=== PATIENT | female | born 1930 | race Caucasian/White ===

== ENCOUNTER 2016-08-03 10:04 | Outpatient (CLI) | payer MEDICARE, MEDICAID ==
[2016-08-03] MEDS ORDERED: IOPAMIDOL-300 100 ML VIAL IVP ONE (11:45)
== END 2016-08-03 10:05 | disposition home or self-care (01) ==
DX: R59.0 Localized enlarged lymph nodes (principal)
CPT/HCPCS: 36415; 71260; 82565; Q9967

== ENCOUNTER 2016-08-26 07:34 | Outpatient (CLI) | payer MEDICARE, MEDICAID | END 2016-08-26 07:35 | disposition home or self-care (01) | DX: E11.9 Type 2 diabetes mellitus without complications (principal); N28.9 Disorder of kidney and ureter, unspecified ==

== ENCOUNTER 2016-11-25 08:58 | Outpatient (CLI) | payer MEDICARE, MEDICAID | END 2016-11-25 08:59 | disposition home or self-care (01) | LOC: LAB.WCP 08:58 | PROVIDERS: ATTEND Family Medicine | DX: N39.0 Urinary tract infection, site not specified (principal) | CPT/HCPCS: 87077; 87086; 87205 ==

== ENCOUNTER 2017-02-24 17:47 | Outpatient (CLI) | payer MEDICARE, MEDICAID ==
[2017-02-24 18:15] LABS: BASOPHILS % (AUTO) 0.6 %; EOSINOPHILS % (AUTO) 0.5 %; HCT - HEMATOCRIT 38.4 % (37.0-47.0); HGB - HEMOGLOBIN 12.9 g/dL (12.0-16.0); LYMPHOCYTES # (AUTO) 1.1 10^3/uL (1.5-3.5); LYMPHOCYTES % (AUTO) 22.7 %; MEAN CORPUSCULAR HEMOGLOBIN 30.9 pg (27.0-31.0); MEAN CORPUSCULAR HGB CONC 33.7 g/dL (32.0-36.0); MEAN CORPUSCULAR VOLUME 91.7 fL (81.0-99.0); MONOCYTES # (AUTO) 0.8 10^3/uL (0.0-1.0); MONOCYTES % (AUTO) 16.9 %; NEUTROPHILS % (AUTO) 59.3 %; RED BLOOD COUNT 4.18 10^6/uL (4.20-5.40); RED CELL DISTRIBUTION WIDTH 14.2 % (12.0-15.0)
[2017-02-24 18:32] LABS: BILIRUBIN,TOTAL 1.7 mg/dL (0.2-1.0); CALCIUM 9.7 mg/dL (8.5-10.3); CREATININE 0.9 mg/dL (0.4-1.0); POTASSIUM 3.7 mmol/L (3.5-5.0); TOTAL PROTEIN 8.4 g/dL (6.7-8.2)
[2017-02-24 19:09] LABS: PLATELET ESTIMATE, MANUAL NORMAL (130-450,000) (NORMAL); PLATELET MORPHOLOGY NORMAL APPEARANCE (NORMAL); WBC MORPHOLOGY (MULTIPLE) NORMAL APPEARANCE (NORMAL)
== END 2017-02-24 17:48 | disposition home or self-care (01) ==
LOC: LAB 17:47
PROVIDERS: ATTEND Family Medicine
DX: R07.89 Other chest pain (principal)
CPT/HCPCS: 36415; 80053; 84484; 85025

== ENCOUNTER 2017-04-20 13:46 | Emergency (ER) | payer MEDICARE, MEDICAID ==
--- NOTE | 2017-04-20 14:02 | ED Physician Documentation ---
History of Present Illness - Stated complaint Stated Complaint: DIZZY - Chief complaint Chief Complaint: Cardiac - History obtained from History obtained from: Patient, EMS - History of Present Illness Timing: Last night Pain level max: 0 Pain level now: 0 Improved by: nothing Worsened by: nothing - Additonal information Additional information: Patient is a 86-year-old female with a long-standing history of dementia who states she has been intermittently dizzy since last night she believes. Does have a history of atrial fibrillation and is on warfarin and digoxin for this. Noted to be hypertensive and bradycardic with EMS. Heart rate down into the 30s. Denies any chest pain or shortness of breath. Patient may have fallen and hit her head, she is unsure. Review of Systems Ten Systems: 10 systems reviewed and negative Constitutional: denies: Fever, Chills Throat: denies: Sore throat Cardiac: denies: Chest pain / pressure Respiratory: denies: Cough GI: denies: Abdominal Pain, Nausea, Vomiting, Diarrhea Skin: denies: Rash Musculoskeletal: denies: Neck pain, Back pain Neurologic: reports: Head injury (possible). 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 HEENT: Cataracts, Tonsil/Adenoidectomy - Present Medications Home Medications: Ambulatory Orders Medication Instructions Recorded Confirmed Alendronate [Fosamax] 70 mg PO ONCE 09/29/13 09/29/13 Digoxin [Lanoxin] 125 mcg PO DAILY 09/29/13 09/29/13 Furosemide [Lasix] 40 mg PO DAILY 09/29/13 09/29/13 Levothyroxine [Synthroid] 88 mcg PO QDAC 09/29/13 09/29/13 Losartan [Cozaar] 25 mg PO DAILY 09/29/13 09/29/13 Losartan [Cozaar] 25 mg PO DAILY 09/29/13 09/29/13 Potassium Chloride [Klor-Con M20] 20 meq PO 09/29/13 09/29/13 Warfarin Sodium [Coumadin] 2.5 mg PO DAILY 09/29/13 09/29/13 - Allergies Allergies/Adverse Reactions: Allergies Allergy/AdvReac Type Severity Reaction Status Date / Time No Known Drug Allergies Allergy Verified 04/20/17 13:52 - Social History Does the pt smoke?: No Smoking Status: Never smoker Does the pt drink ETOH?: No Does the pt have substance abuse?: No - Immunizations Immunizations are current?: Yes PD ED PE NORMAL - Vitals Vital signs reviewed: Yes - General General: Alert and oriented X 3, No acute distress, Well developed/nourished - HEENT HEENT: PERRL, Moist mucous membranes - Neck Neck: Supple, no meningeal sign - Cardiac Cardiac: Other (irregular, bradycardic) - Respiratory Respiratory: No respiratory distress, Clear bilaterally - Abdomen Abdomen: Soft, Non tender, Non distended - Derm Derm: Warm and dry - Extremities Extremities: No edema, No calf tenderness / cord - Neuro Neuro: Alert and oriented X 3 - Psych Psych: Normal mood, Normal affect Results - Vitals Vitals: Vital Signs - 24 hr 04/20/17 04/20/17 13:46 16:22 Temperature 36.1 C L Heart Rate 46 L 55 L Respiratory 18 21 Rate Blood Pressure 200/77 H 189/61 H O2 Saturation 96 100 Oxygen O2 Source Room air - EKG (time done) 1353 Rate: Rate (enter#) (49) Rhythm: Atrial fibrillation Intervals: RBBB - Labs Labs: Laboratory Tests 04/20/17 04/20/17 04/20/17 14:35 15:00 15:00 WBC 4.2 L RBC 3.95 L Hgb 12.2 Hct 35.6 L MCV 90.1 MCH 31.0 MCHC 34.4 RDW 14.4 Plt Count 135 MPV 8.6 Neut # Not Reportable Lymph # Not Reportable [place] # Not Reportable Eos # Not Reportable Baso # Not Reportable Absolute Nucleated RBC Not Reportable Total Counted 100 Band Neuts % (Manual) 0 Nucleated RBC % Not Reportable Neutrophils # (Manual) 2.3 Lymphocytes # (Manual) 1.4 L Monocytes # (Manual) 0.5 Differential Comment MANUAL DIFFERENTIAL Platelet Estimate NORMAL (130-450,000) Platelet Morphology 1+ LARGE PLATELETS RBC Morph Micro Appear NORMAL APPEARANCE PT INR Sodium 136 Potassium 3.6 Chloride 98 L Carbon Dioxide 29 Anion Gap 9.0 BUN 16 Creatinine 0.8 Estimated GFR (MDRD) 68 L Glucose 95 Calcium 9.5 Total Bilirubin 1.4 H AST 28 ALT 15 Alkaline Phosphatase 73 Troponin I Total Protein 8.4 H Albumin 4.3 Globulin 4.1 Albumin/Globulin Ratio 1.0 Lipase 42 Urine Color YELLOW Urine Clarity CLEAR Urine pH 6.5 Ur Specific [place] 1.010 Urine Protein NEGATIVE Urine Glucose (UA) NEGATIVE Urine Ketones NEGATIVE Urine Occult Blood NEGATIVE Urine Nitrite NEGATIVE Urine Bilirubin NEGATIVE Urine Urobilinogen 0.2 (NORMAL) Ur Leukocyte Esterase NEGATIVE Ur Microscopic Review NOT INDICATED Urine Culture Comments NOT INDICATED Last Dose Date Last Dose Time Digoxin 04/20/17 04/20/17 04/20/17 15:00 15:00 15:00 WBC RBC Hgb Hct MCV MCH MCHC RDW Plt Count MPV Neut # Lymph # [place] # Eos # Baso # Absolute Nucleated RBC Total Counted Band Neuts % (Manual) Nucleated RBC % Neutrophils # (Manual) Lymphocytes # (Manual) Monocytes # (Manual) Differential Comment Platelet Estimate Platelet Morphology RBC Morph Micro Appear PT 37.5 H INR 3.3 H Sodium Potassium Chloride Carbon Dioxide Anion Gap BUN Creatinine Estimated GFR (MDRD) Glucose Calcium Total Bilirubin AST ALT Alkaline Phosphatase Troponin I < 0.04 Total Protein Albumin Globulin Albumin/Globulin Ratio Lipase Urine Color Urine Clarity Urine pH Ur Specific [place] Urine Protein Urine Glucose (UA) Urine Ketones Urine Occult Blood Urine Nitrite Urine Bilirubin Urine Urobilinogen Ur Leukocyte Esterase Ur Microscopic Review Urine Culture Comments Last Dose Date UNKNOWN Last Dose Time UNKNOWN Digoxin 0.9 - Rads (name of study) head CT Radiology: Prelim report reviewed, EMP read contemporaneously, See rad report ( No acute intracranial CT abnormality. ) cxr Radiology: Prelim report reviewed, EMP read contemporaneously, See rad report ( There is cardiomegaly. No acute intrathoracic plain film abnormality. ) PD MEDICAL DECISION MAKING - ED course Complexity details: reviewed results, re-evaluated patient, considered differential, d/w patient, d/w PMD, d/w regional sales consultant ED course: Patient is an 86-year-old female who presents to the emergency department with symptomatic bradycardia and hypertension. Discussed the case with her primary care provider, Dr. Petersen, who states that normally the patient's blood pressure is low, hypertension is unusual for her. Also her heart rate is normally in the 50s-70s. Patient was monitored in the emergency department and the dizziness resolved. Discussed the case with Dr. Artis, cardiology who recommends stopping her digoxin and if still bradycardic after 24-48 hrs would consider pacemaker. HR does increase with exertion in the ED. She does not want to stay in the hospital for telemetry monitoring while this happens, therefore will have the [place] [facility] check her heart rate throughout the day and report back to her primary care provider. Will also have her follow-up with Dr. Petersen for further evaluation. Patient is well-appearing, nontoxic. Afebrile. No evidence of intracranial hemorrhage. Patient counseled regarding signs and symptoms for which I believe and urgent re-evaluation would be necessary. Patient with good understanding of and agreement to plan and is comfortable going home at this time This document was made in part using voice recognition software. While efforts are made to proofread this document, sound alike and grammatical errors may occur. Departure - Departure Disposition: 01 Home, Self Care Clinical Impression: Bradycardia Atrial fibrillation Qualifiers: Atrial fibrillation type: unspecified Qualified Code(s): I48.91 - Unspecified atrial fibrillation Hypertension Qualifiers: Hypertension type: unspecified Qualified Code(s): I10 - Essential (primary) hypertension Condition: Stable Instructions: ED Afib Follow-Up: Maxx Petersen DO [Primary Care Provider] - Within 3 Days Comments: Stop the digoxin and check her heart rate three times a day. If her heart rate does not increase over the next 24-48 hours, she will likely need a pacemaker with Dr. Artis at [facility]. I spoke with him and Dr. Petersen today. Return if she worsens. Discharge Date/Time: 04/20/17 17:28
[2017-04-20 15:11] LABS: BASOPHILS % (AUTO) 0.6 %; EOSINOPHILS % (AUTO) 0.6 %; HCT - HEMATOCRIT 35.6 % (37.0-47.0); HGB - HEMOGLOBIN 12.2 g/dL (12.0-16.0); LYMPHOCYTES % (AUTO) 26.4 %; MEAN CORPUSCULAR HGB CONC 34.4 g/dL (32.0-36.0); MEAN CORPUSCULAR VOLUME 90.1 fL (81.0-99.0); MEAN PLATELET VOLUME 8.6 fL (7.9-10.8); MONOCYTES % (AUTO) 15.3 %; NEUTROPHILS % (AUTO) 57.1 %; RED BLOOD COUNT 3.95 10^6/uL (4.20-5.40); RED CELL DISTRIBUTION WIDTH 14.4 % (12.0-15.0); UNCORRECTED WHITE BLOOD COUNT 4.2 x10^3/uL; WHITE BLOOD COUNT 4.2 x10^3/uL (4.8-10.8)
[2017-04-20 15:17] LABS: BILIRUBIN,TOTAL 1.4 mg/dL (0.2-1.0); CALCIUM 9.5 mg/dL (8.5-10.3); CREATININE 0.8 mg/dL (0.4-1.0); POTASSIUM 3.6 mmol/L (3.5-5.0); TOTAL PROTEIN 8.4 g/dL (6.7-8.2)
[2017-04-20 15:18] LABS: INR 3.3 (0.8-1.2); PT - PROTHROMBIN TIME 37.5 secs (9.9-12.6)
[2017-04-20 15:20] LABS: BAND NEUTROPHILS % (MANUAL) 0 %
[2017-04-20 15:36] LABS: LYMPHOCYTES % (MANUAL) 34 %; NEUTROPHILS % (MANUAL) 54 %; PLATELET MORPHOLOGY 1+ LARGE PLATELETS (NORMAL); TOTAL CELLS COUNTED 100
[2017-04-20 15:37] LABS: NP AUTO DIFFERENTIAL? YES; NP MAN DIFFERENTIAL? NO; PLATELET ESTIMATE, MANUAL NORMAL (130-450,000) (NORMAL)
[2017-04-20 15:52] LABS: BILIRUBIN,URINE NEGATIVE (NEGATIVE); PH,URINE 6.5 PH (5.0-7.5)
[2017-04-20 15:55] LABS: UA CHARGE (STRIP ONLY) YES; UR CULTURE IF IND NOT INDICATED
[2017-04-20 16:22] VITALS: BP 189/61
--- NOTE | 2017-04-20 16:31 | CT Preliminary Report ---
Exam: CT HEAD W/O IMPRESSION: No acute intracranial CT abnormality. [facility] SITE ID: [id number]
--- NOTE | 2017-04-20 16:34 | CT Report ---
EXAM: CT HEAD EXAM DATE: 04/20/2017 04:08 PM. CLINICAL HISTORY: Head injury, bradycardia, pt on warfarin. COMPARISON: 09/29/2013. TECHNIQUE: Noncontrast axial imaging was performed through the head. In accordance with CT protocol optimization, one or more of the following dose reduction techniques w ere utilized for this exam: automated exposure control, adjustment of mA and/or KV based on patient s ize, or use of iterative reconstructive technique. FINDINGS HEAD CT: Parenchyma: No intraparenchymal hemorrhage. No evidence of mass, midline shift, or CT findings of acu te infarction. Periventricular white matter hypodensity may represent small vessel ischemic disease. Extraaxial Spaces: There is mild generalized volume loss. No subdural or epidural collections identif ied. Ventricles: Normal in size and position. Sinuses: Paranasal sinuses and mastoid air cells demonstrate no evidence of significant opacification . Bones: No evidence of fracture or calvarial defect. Other: None. IMPRESSION: No acute intracranial CT abnormality. [facility] Referring Provider Line: [phone] SITE ID: [id number]
--- NOTE | 2017-04-20 16:34 | XRAY Preliminary Report ---
Exam: XR CHEST 1 VIEW IMPRESSION: 1. There is cardiomegaly. 2. No acute intrathoracic plain film abnormality. [facility] SITE ID: [id number]
--- NOTE | 2017-04-20 16:37 | XRAY Report ---
EXAM: CHEST RADIOGRAPHY EXAM DATE: 04/20/2017 04:08 PM. CLINICAL HISTORY: Chest pain. COMPARISON: 08/03/2016. TECHNIQUE: 1 view. FINDINGS: Lungs/Pleura: No focal opacities evident. No pleural effusion. No pneumothorax. Mediastinum: There is cardiomegaly. Other: None. IMPRESSION: 1. There is cardiomegaly. 2. No acute intrathoracic plain film abnormality. [facility] Referring Provider Line: [phone] SITE ID: [id number]
== END 2017-04-20 17:28 | disposition home or self-care (01) ==
LOC: EDBD → ED 13:46
DX: R00.1 Bradycardia, unspecified (principal); I48.91 Unspecified atrial fibrillation; I10 Essential (primary) hypertension; I45.10 Unspecified right bundle-branch block; F03.90 Unspecified dementia, unspecified severity, without behavioral disturbance, psychotic disturbance, mood disturbance, and anxiety; I25.10 Atherosclerotic heart disease of native coronary artery without angina pectoris; E11.9 Type 2 diabetes mellitus without complications; Z86.73 Personal history of transient ischemic attack (TIA), and cerebral infarction without residual deficits; Z79.01 Long term (current) use of anticoagulants
CPT/HCPCS: 36415; 70450; 71010; 80053; 80162; 81001; 81003; 83690; 84484; 85025; 85610; 87086; 93005; 99284

== ENCOUNTER 2017-07-22 04:06 | Outpatient (CLI) | payer MEDICARE, MEDICAID | END 2017-07-22 04:07 | disposition critical access hospital (66) | LOC: EMS 04:06 | PROVIDERS: ATTEND Surgery | DX: M25.552 Pain in left hip (principal) | CPT/HCPCS: A0425; A0427 ==

== ENCOUNTER 2017-07-22 04:57 | Emergency (ER) | payer MEDICARE, MEDICAID ==
--- NOTE | 2017-07-22 05:05 | ED Physician Documentation ---
PD HPI LOWER EXT INJURY - Stated complaint Stated Complaint: Hip Px - History obtained from History obtained from: Patient, EMS - History of Present Illness PD HPI LOW EXT INJURY LOCATION: Left Type of injury: Twist Where injury occurred: Home Timing - onset: Today Timing - details: Abrupt onset Associated symptoms: Swelling Contributing factors: Prosthetic joint Similar symptoms before: Has not had sx before Recently seen: Not recently seen - Additional information Additional information: Patient is an 87 year old female with a dementia and prosthetic hip who is presenting to the emergency department for left hip pain. According to patient and ems patient rolled over in bed and felt her hip pop, and when staff came in her left leg was hanging over the bed. patient denies any trauma. 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 HEENT: Cataracts, Tonsil/Adenoidectomy - Present Medications Home Medications: Ambulatory Orders Medication Instructions Recorded Confirmed Alendronate [Fosamax] 70 mg PO ONCE 09/29/13 09/29/13 Digoxin [Lanoxin] 125 mcg PO DAILY 09/29/13 09/29/13 Furosemide [Lasix] 40 mg PO DAILY 09/29/13 09/29/13 Levothyroxine [Synthroid] 88 mcg PO QDAC 09/29/13 09/29/13 Losartan [Cozaar] 25 mg PO DAILY 09/29/13 09/29/13 Losartan [Cozaar] 25 mg PO DAILY 09/29/13 09/29/13 Potassium Chloride [Klor-Con M20] 20 meq PO 09/29/13 09/29/13 Warfarin Sodium [Coumadin] 2.5 mg PO DAILY 09/29/13 09/29/13 - Allergies Allergies/Adverse Reactions: Allergies Allergy/AdvReac Type Severity Reaction Status Date / Time atenolol Allergy Unknown Verified 07/22/17 05:08 glipizide Allergy Unknown Verified 07/22/17 05:08 lisinopril Allergy Unknown Verified 07/22/17 05:08 nitrofurantoin Allergy Unknown Verified 07/22/17 05:08 [From Macrobid] simvastatin Allergy Unknown Verified 07/22/17 05:08 - Social History Does the pt smoke?: No Smoking Status: Never smoker Does the pt drink ETOH?: No Does the pt have substance abuse?: No - Immunizations Immunizations are current?: Yes PD ED PE NORMAL - General General: No acute distress - HEENT HEENT: Atraumatic, PERRL - Cardiac Cardiac: No murmur - Respiratory Respiratory: No respiratory distress - Abdomen Abdomen: Soft - Derm Derm: Normal color, Warm and dry, No rash - Neuro Neuro: No sensory deficit - Psych Psych: Normal mood PD ED PE EXPANDED - General General: Alert, No acute distress - HEENT HEENT: Dry mucous membranes - Extremities Extremities: Left hip (tenderness and deformity upon palpation) Results - Vitals Vitals: Vital Signs - 24 hr 07/22/17 07/22/17 07/22/17 05:02 05:44 05:48 Temperature 36.0 C L Heart Rate 86 78 86 Respiratory 12 18 17 Rate Blood Pressure 156/93 H 160/94 H 150/110 H O2 Saturation 92 95 98 07/22/17 07/22/17 07/22/17 05:57 06:02 06:10 Temperature Heart Rate 70 68 67 Respiratory 20 20 16 Rate Blood Pressure 139/79 H 152/78 H 142/76 H O2 Saturation 99 97 100 Oxygen O2 Source Nasal cannula - Rads (name of study) hip and pelvis Radiology: Final report received (dislocated prosthetic joint), EMP read contemporaneously hip post reduction Radiology: Final report received (reduced joint), EMP read contemporaneously Procedures - Reduction Body part reduced: Left, Hip, prosthetic Fracture or dislocation: Dislocation Anesthesia: Conscious sedation, Propofol Shoulder reduction technique: Traction - counter tract Hip reduction technique: Fulcrum Reduction aftercare: NV intact, Xray confirms reduction, Alignment improved, Patient tolerated well PD MEDICAL DECISION MAKING - ED course Complexity details: reviewed old records, reviewed results, re-evaluated patient , considered differential, d/w patient ED course: Patient was seen and examined at bedside. patient had received fentanyl in the field and pain was well controlled. imaging was ordered. When patient returned the results were reviewed and showed acute dislocation. Patient's hip was successfully reduced using 20mg propofol, see described above. Patient required no further work up and was stable for discharge with outpatient follow up. Departure - Departure Disposition: 01 Home, Self Care Clinical Impression: Hip dislocation, left Condition: Good Instructions: ED Hip Replace Dislocation Reduc Comments: Your symptoms were caused by a dislocated hip, which has since been reduced. Once it has been dislocated once you are more likely to have it happen again. You should follow up with the surgical team that did the procedure. You should ice your hip and take motrin or tylenol as needed for pain. You may return to the emergency department at any time for new worsening or uncontrollable symptoms.
[2017-07-22] MEDS ORDERED: PROPOFOL 200 MG/20 ML VIAL IVP STA (05:34)
--- NOTE | 2017-07-22 06:00 | XRAY Preliminary Report ---
Exam: XR HIP W/PELVIS 2-3V LT IMPRESSION: Posterior superior dislocation of the femoral component of the left hip prosthesis. [facility] SITE ID: [id number]
--- NOTE | 2017-07-22 06:07 | XRAY Report ---
EXAM: LEFT HIP AND PELVIS RADIOGRAPHY EXAM DATE: 07/22/2017 05:32 AM. HISTORY: Rolled in bed felt a pop, history of hip replacement. COMPARISONS: CT 09/17/2015. TECHNIQUE: 1 view of the pelvis and 1 view of the hip. FINDINGS: Bones: Bones are osteopenic. There is no evidence of an acute displaced fracture at this time. Sacrum is obscured by overlying gas and fecal matter. Incidentally noted bifid L5 spinous process. Joints: There is a left hip prosthesis. There is posterior superior dislocation of the femoral compon ent of the left hip prosthesis. Mild right hip degenerative change. Severe symphysis pubis degenerati ve change. Soft Tissues: Moderate to large amount of fecal load residual. IMPRESSION: Posterior superior dislocation of the femoral component of the left hip prosthesis. [facility] Referring Provider Line: [phone] SITE ID: [id number]
--- NOTE | 2017-07-22 06:23 | XRAY Preliminary Report ---
Exam: XR HIP W/PELVIS 1V LT IMPRESSION: 1. There is now congruent alignment of the left hip prosthesis on this single provided frontal projec tion, compared to the prior study. 2. No displaced acute fracture demonstrated on this frontal projection. [facility] SITE ID: [id number]
--- NOTE | 2017-07-22 06:24 | XRAY Report ---
EXAM: PELVIS RADIOGRAPHY EXAM DATE: 07/22/2017 06:09 AM. CLINICAL HISTORY: Post reduction. COMPARISON: Exam earlier tonight TECHNIQUE: 1 view. FINDINGS/IMPRESSION: 1. There is now congruent alignment of the left hip prosthesis on this single provided frontal projec tion, compared to the prior study. 2. No displaced acute fracture demonstrated on this frontal projection. [facility] Referring Provider Line: [phone] SITE ID: [id number]
[2017-07-22 06:42] VITALS: BP 154/79
== END 2017-07-22 11:00 | disposition home or self-care (01) ==
LOC: EDBD → EDUNIT# → ED 04:57
DX: T84.021A Dislocation of internal left hip prosthesis, initial encounter (principal); F03.90 Unspecified dementia, unspecified severity, without behavioral disturbance, psychotic disturbance, mood disturbance, and anxiety; I10 Essential (primary) hypertension; I25.10 Atherosclerotic heart disease of native coronary artery without angina pectoris; E11.9 Type 2 diabetes mellitus without complications; Z86.73 Personal history of transient ischemic attack (TIA), and cerebral infarction without residual deficits
CPT/HCPCS: 27266; 99283; 99284

== ENCOUNTER 2017-08-09 15:24 | Outpatient (CLI) | payer MEDICARE, MEDICAID ==
[2017-08-09 19:10] LABS: HGB - HEMOGLOBIN 11.7 g/dL (12.0-16.0); MEAN CORPUSCULAR HEMOGLOBIN 27.9 pg (27.0-31.0); MEAN CORPUSCULAR HGB CONC 32.2 g/dL (32.0-36.0); MEAN CORPUSCULAR VOLUME 86.6 fL (81.0-99.0); MEAN PLATELET VOLUME 8.4 fL (7.9-10.8); RED BLOOD COUNT 4.19 10^6/uL (4.20-5.40); RED CELL DISTRIBUTION WIDTH 16.1 % (12.0-15.0)
[2017-08-09 19:22] LABS: CALCIUM 9.2 mg/dL (8.5-10.3)
== END 2017-08-09 15:25 | disposition home or self-care (01) ==
LOC: LAB.WCP 15:24
PROVIDERS: ATTEND Family Medicine
DX: R06.02 Shortness of breath (principal)
CPT/HCPCS: 36415; 80048; 83880

== ENCOUNTER 2017-08-18 14:19 | Observation (INO) | payer MEDICARE, MEDICAID ==
--- NOTE | 2017-08-18 15:34 | ED Physician Documentation ---
PD HPI DYSPNEA - Stated complaint Stated Complaint: SOA - Chief complaint Chief Complaint: Cardiac - History obtained from History obtained from: Patient - History of Present Illness Timing - onset: How many days ago (4-5) Timing - onset during: Sleep, Exertion Timing - details: Gradual onset, Still present (She has been having progressive dyspnea on exertion and orthopnea over the last for 5 days. This is associated with edema both ankles and lower legs. She states this is new for her and typically does not have edema. She has had a little bit of a cough without any fevers. She has been seen by her primary care in the last couple of weeks with some shortness of breath and being treated as possible pneumonia. I am not sure the antibiotic or medication. She does typically take a low-dose of furosemide. She has had increased dyspnea and general weakness. She states she crumpled while walking with her walker earlier today. She denies any fall or being per se.) Inciting event(s): URI (some cough and congestion). No: Immobilization/travel Improved by: Rest, Sitting up Worsened by: Exertion, Laying flat Associated symptoms: Cough, Chest pain / discomfort (pressure feeling), Bilateral edema. No: Fever, Hemoptysis, Wheezing Similar symptoms before: Has not had sx before (is on Furosemide but states no history of CHF episodes in the past.) Recently seen: Clinic (08/09 at PCP, with outpatient CXR.) Review of Systems Constitutional: reports: Myalgias, Fatigue. denies: Fever, Chills Nose: reports: Congestion. denies: Rhinorrhea / runny nose Throat: denies: Sore throat Cardiac: reports: Chest pain / pressure, Pedal edema (new onset for her). denies: Palpitations, Calf pain Respiratory: reports: Dyspnea, Cough. denies: Wheezing GI: denies: Abdominal Pain, Nausea, Vomiting, Diarrhea, Bloody / black stool : denies: Dysuria, Frequency Skin: denies: Rash, Lesions Musculoskeletal: reports: Extremity swelling. denies: Neck pain, Back pain Neurologic: reports: Generalized weakness. denies: Focal weakness, Numbness Psychiatric: denies: Depressed Endocrine: reports: Easy bruising / bleeding. 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: Hysterectomy HEENT: Cataracts, Tonsil/Adenoidectomy - Present Medications Home Medications: Ambulatory Orders Medication Instructions Recorded Confirmed Alendronate [Fosamax] 70 mg PO ONCE 09/29/13 09/29/13 Digoxin [Lanoxin] 125 mcg PO DAILY 09/29/13 09/29/13 Furosemide [Lasix] 40 mg PO DAILY 09/29/13 09/29/13 Levothyroxine [Synthroid] 88 mcg PO QDAC 09/29/13 09/29/13 Losartan [Cozaar] 25 mg PO DAILY 09/29/13 09/29/13 Losartan [Cozaar] 25 mg PO DAILY 09/29/13 09/29/13 Potassium Chloride [Klor-Con M20] 20 meq PO 09/29/13 09/29/13 Warfarin Sodium [Coumadin] 2.5 mg PO DAILY 09/29/13 09/29/13 - Allergies Allergies/Adverse Reactions: Allergies Allergy/AdvReac Type Severity Reaction Status Date / Time atenolol Allergy Unknown Verified 07/22/17 05:08 glipizide Allergy Unknown Verified 07/22/17 05:08 lisinopril Allergy Unknown Verified 07/22/17 05:08 nitrofurantoin Allergy Unknown Verified 07/22/17 05:08 [From Macrobid] simvastatin Allergy Unknown Verified 07/22/17 05:08 - Social History Does the pt smoke?: No Smoking Status: Never smoker Does the pt drink ETOH?: No Does the pt have substance abuse?: No - Immunizations Immunizations are current?: Yes PD ED PE NORMAL - Vitals Vital signs reviewed: Yes - General General: Alert and oriented X 3, No acute distress, Well developed/nourished - HEENT HEENT: Ears normal, Moist mucous membranes, Pharynx benign - Neck Neck: Supple, no meningeal sign, No adenopathy - Cardiac Cardiac: No murmur. No: RRR (irregular but rate controlled in 80-90 range) - Respiratory Respiratory: No respiratory distress. No: Clear bilaterally (coarse wet sounds both lower thirds on both sides. ) - Abdomen Abdomen: Soft, Non tender - Rectal Rectal: Deferred - Back Back: No CVA TTP - Derm Derm: Warm and dry. No: Normal color (pale) - Extremities Extremities: No deformity, No tenderness to palpate, Normal ROM s pain, No calf tenderness / cord, Other (2+ edema both legs and ankles up to level of knees. ) - Neuro Neuro: Alert and oriented X 3, pulmonologist intensivist 2-12 intact, No motor deficit, No sensory deficit, Normal speech Eye Opening: Spontaneous Motor: Obeys Commands Verbal: Oriented GCS Score: 15 - Psych Psych: Normal mood Results - Vitals Vitals: Vital Signs - 24 hr 08/18/17 08/18/17 14:21 16:28 Temperature 36.4 C L Heart Rate 98 89 Respiratory 16 16 Rate Blood Pressure 130/83 H 154/90 H O2 Saturation 93 96 Oxygen O2 Source Room air - EKG (time done) 14:28 Rate: Rate (enter#) (80) Rhythm: Atrial fibrillation [place]: Normal Intervals: RBBB Ischemia: Non specific changes. No: ST elevation c/w ischemia Compare to prior EKG: Unchanged from prior EKG - Labs Labs: Laboratory Tests 08/18/17 08/18/17 08/18/17 15:25 15:25 16:28 WBC 4.2 L RBC 4.31 Hgb 12.1 Hct 37.2 MCV 86.2 MCH 28.1 MCHC 32.6 RDW 17.1 H Plt Count 130 MPV 9.1 Neut # Not Reportable Lymph # Not Reportable [place] # Not Reportable Eos # Not Reportable Baso # Not Reportable Absolute Nucleated RBC Not Reportable Total Counted 100 Band Neuts % (Manual) 0 Abnorm Lymph % (Manual) 0 Metamyelocytes % 1 H Myelocytes % 1 H Nucleated RBC % Not Reportable Neutrophils # (Manual) 2.4 Lymphocytes # (Manual) 0.9 L Monocytes # (Manual) 0.7 Eosinophils # (Manual) 0.0 Basophils # (Manual) 0.0 Differential Comment MANUAL DIFFERENTIAL Platelet Estimate NORMAL (130-450,000) Platelet Morphology 1+ LARGE PLATELETS RBC Morph Micro Appear 1+ ANISOCYTOSIS Sodium 136 Potassium 3.2 L Chloride 99 L Carbon Dioxide 26 Anion Gap 11.0 BUN 15 Creatinine 0.8 Estimated GFR (MDRD) 68 L Glucose 112 H Calcium 9.0 Magnesium 1.4 L Total Bilirubin 1.5 H AST 32 ALT 16 Alkaline Phosphatase 56 Troponin I B-Natriuretic Peptide 908 H Total Protein 7.8 Albumin 3.4 Globulin 4.4 H Albumin/Globulin Ratio 0.8 L Lipase 16 L Urine Color Urine Clarity Urine pH Ur Specific [place] Urine Protein Urine Glucose (UA) Urine Ketones Urine Occult Blood Urine Nitrite Urine Bilirubin Urine Urobilinogen Ur Leukocyte Esterase Urine RBC Urine WBC Ur Squamous Epith Cells Urine Bacteria Urine Mucus Ur Microscopic Review Urine Culture Comments 08/18/17 08/18/17 16:28 17:09 WBC RBC Hgb Hct MCV MCH MCHC RDW Plt Count MPV Neut # Lymph # [place] # Eos # Baso # Absolute Nucleated RBC Total Counted Band Neuts % (Manual) Abnorm Lymph % (Manual) Metamyelocytes % Myelocytes % Nucleated RBC % Neutrophils # (Manual) Lymphocytes # (Manual) Monocytes # (Manual) Eosinophils # (Manual) Basophils # (Manual) Differential Comment Platelet Estimate Platelet Morphology RBC Morph Micro Appear Sodium Potassium Chloride Carbon Dioxide Anion Gap BUN Creatinine Estimated GFR (MDRD) Glucose Calcium Magnesium Total Bilirubin AST ALT Alkaline Phosphatase Troponin I < 0.04 B-Natriuretic Peptide Total Protein Albumin Globulin Albumin/Globulin Ratio Lipase Urine Color YELLOW Urine Clarity CLEAR Urine pH 6.0 Ur Specific Johnson 1.020 Urine Protein 30 H Urine Glucose (UA) NEGATIVE Urine Ketones NEGATIVE Urine Occult Blood NEGATIVE Urine Nitrite NEGATIVE Urine Bilirubin NEGATIVE Urine Urobilinogen 0.2 (NORMAL) Ur Leukocyte Esterase NEGATIVE Urine RBC 0-5 Urine WBC 0-3 Ur Squamous Epith Cells FEW Squamous Urine Bacteria Rare Urine Mucus Few Strands Ur Microscopic Review INDICATED Urine Culture Comments NOT INDICATED - Rads (name of study) chest Radiology: Prelim report reviewed (right upper infiltrate; also general CHF) PD MEDICAL DECISION MAKING - ED course Complexity details: reviewed results, considered differential, d/w patient Departure - Departure Disposition: ED Place in Observation Clinical Impression: Atrial fibrillation Qualifiers: Atrial fibrillation type: persistent Qualified Code(s): I48.1 - Persistent atrial fibrillation Dyspnea Qualifiers: Dyspnea type: dyspnea on exertion Qualified Code(s): R06.09 - Other forms of dyspnea Congestive heart failure Qualifiers: Congestive heart failure type: unspecified Congestive heart failure chronicity : acute Qualified Code(s): I50.9 - Heart failure, unspecified Condition: Stable Record reviewed to determine appropriate education?: Yes
[2017-08-18] MEDS ORDERED: SODIUM CHLORIDE 0.9% 500 ML IV ONE (15:54)
[2017-08-18 16:03] LABS: BASOPHILS % (AUTO) 0.5 %; EOSINOPHILS % (AUTO) 1.9 %; HGB - HEMOGLOBIN 12.1 g/dL (12.0-16.0); LYMPHOCYTES % (AUTO) 21.4 %; MEAN CORPUSCULAR HEMOGLOBIN 28.1 pg (27.0-31.0); MEAN CORPUSCULAR HGB CONC 32.6 g/dL (32.0-36.0); MEAN CORPUSCULAR VOLUME 86.2 fL (81.0-99.0); MEAN PLATELET VOLUME 9.1 fL (7.9-10.8); MONOCYTES % (AUTO) 20.8 %; NEUTROPHILS % (AUTO) 55.4 %; PLT - PLATELET COUNT 130 10^3/uL (130-450); RED BLOOD COUNT 4.31 10^6/uL (4.20-5.40); RED CELL DISTRIBUTION WIDTH 17.1 % (12.0-15.0); WHITE BLOOD COUNT 4.2 x10^3/uL (4.8-10.8)
[2017-08-18 16:21] LABS: ABNORMAL LYMPHS % (MANUAL) 0 %; BAND NEUTROPHILS % (MANUAL) 0 %
[2017-08-18 16:26] LABS: LYMPHOCYTES # (MANUAL) 0.9 10^3/uL (1.5-3.5); LYMPHOCYTES % (MANUAL) 22 %; METAMYELOCYTES % (MANUAL) 1 %; MONOCYTES # (MANUAL) 0.7 10^3/uL (0.0-1.0); MYELOCYTES % (MANUAL) 1 %; NEUTROPHILS # (MANUAL) 2.4 10^3/uL (1.5-6.6); NEUTROPHILS % (MANUAL) 58 %
[2017-08-18 16:27] LABS: DIFFERENTIAL COMMENT MANUAL DIFFERENTIAL; PLATELET ESTIMATE, MANUAL NORMAL (130-450,000) (NORMAL); PLATELET MORPHOLOGY 1+ LARGE PLATELETS (NORMAL); RBC MORPHOLOGY (MULTIPLE) 1+ ANISOCYTOSIS (NORMAL)
--- NOTE | 2017-08-18 16:45 | XRAY Report ---
EXAM: CHEST RADIOGRAPHY EXAM DATE: 08/18/2017 03:57 PM. CLINICAL HISTORY: Dyspnea for few days. COMPARISON: Chest 08/16/2018. TECHNIQUE: 2 views. FINDINGS: Stable marked cardiomegaly. Mild diffuse interstitial hazy opacities in the lungs, could re present mild pulmonary edema versus chronic markings, similar to the prior. Small left pleural effusi on appears unchanged. Moderate irregular and nodular opacifications in the right upper lobe appear increased compared to pr ior, new compared to the chest CT from 08/03/2016. This could represent new right upper lobe lung mal ignancy versus pneumonia. Recommend a chest CT preferably with IV contrast to further evaluate. IMPRESSION: Stable marked cardiomegaly. Mild diffuse interstitial hazy opacities in the lungs, could represent mild pulmonary edema versus chronic markings, similar to the prior. Small left pleural eff usion appears unchanged. Moderate irregular and nodular opacifications in the right upper lobe appear increased compared to pr ior, new compared to the chest CT from 08/03/2016. This could represent new right upper lobe lung mal ignancy versus pneumonia. Recommend a chest CT preferably with IV contrast to further evaluate. [facility] Referring Provider Line: [phone] SITE ID: [id number]
[2017-08-18 16:48] LABS: ALBUMIN 3.4 g/dL (3.2-5.5); ALBUMIN/GLOBULIN RATIO 0.8 (1.0-2.2); BILIRUBIN,TOTAL 1.5 mg/dL (0.2-1.0); CREATININE 0.8 mg/dL (0.4-1.0); MAGNESIUM 1.4 mg/dL (1.7-2.8); TOTAL PROTEIN 7.8 g/dL (6.7-8.2)
[2017-08-18] MEDS ORDERED: POTASSIUM BICARB 25 MEQ TABLET PO STA (17:06)
[2017-08-18 17:22] LABS: BILIRUBIN,URINE NEGATIVE (NEGATIVE); GLUCOSE, URINE (UA) NEGATIVE (NEGATIVE); KETONES,URINE (UA) NEGATIVE (NEGATIVE); LEUKOCYTE ESTERASE, URINE NEGATIVE (NEGATIVE); NITRITE,URINE NEGATIVE (NEGATIVE); OCCULT BLOOD,URINE NEGATIVE (NEGATIVE); PROTEIN,URINE 30 mg/dL (NEGATIVE); UROBILINOGEN,URINE 0.2 (NORMAL) E.U./dL (NORMAL)
[2017-08-18 17:23] LABS: CLARITY,URINE CLEAR (CLEAR)
[2017-08-18] MEDS ORDERED: FUROSEMIDE 40 MG/4 ML VIAL IVP STA (17:24)
[2017-08-18 17:31] LABS: BACTERIA,URINE Rare /HPF (None Seen); MUCUS,URINE Few Strands; RBC,URINE 0-5 /HPF (0-5); SQUAMOUS EPITHELIAL CELL,UR FEW Squamous (<= Few)
[2017-08-18] MEDS ORDERED: SODIUM CHLORIDE FLUSH 0.9% 10 ML SYRINGE IVP PRN (18:03)
[2017-08-18 18:04] LABS: INR 2.3 (0.8-1.2); PT - PROTHROMBIN TIME 24.8 secs (9.9-12.6)
--- NOTE | 2017-08-18 20:11 | HISTORY & PHYSICAL EXAMINATION ---
Chief Complaint - Chief Complaint Chief Complaint: increased shortness of breath History of Present Illness - Admitted From Admitted From:: ED - History Obtained From Records Reviewed: yes History obtained from: chart review, patient and POA Exam Limitations: mental status - History of Present Illness HPI Comment/Other: Roger Lott is an elderly 87-year old white female with a past medical history of hypertension, CAD, atrial fibrillation, diabetes mellitus type 2, and TIAs. She currently resides at [facility] in [place], [place] with her . She presented to the ED today after a 4-5 day of increased dyspnea on exertion. Her daughter and POA, Aniya was called to obtain a history to complete this H&P. According to her daughter, she has been having a difficult time with even getting from the chair to the bathroom, without having to stop and rest when she is half way there. She has chronic edema in BLE and takes lasix at home, but no mention of a previous CHF diagnosis. 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) Social History Notes: Patient [place] they retired from work. 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 They had 3 daughters and raised their family in [facility]. The patient wishes to be a DNR. - Substance History Use: Uses substance without health or social issues: NONE Abuse: Recurrent use of substance despite neg consequences: NONE Dependence: Experiences withdrawal or developed tolerances: NONE - POLST Patient has POLST: Yes POLST Status: DNR Meds/Allgy - Home Medications Home Medications: Ambulatory Orders Medication Instructions Recorded Confirmed Levothyroxine [Synthroid] 88 mcg PO QDAC 09/29/13 08/18/17 Warfarin Sodium [Coumadin] 2.5 mg PO SuMoWeFr@1700 09/29/13 08/18/17 Acetaminophen [Tylenol Extra 500 mg PO Q4H PRN 08/18/17 08/18/17 Strength] Ascorbic Acid 500 mg PO 0800 08/18/17 08/18/17 Bioplasma 4 tab SL DAILY 08/18/17 08/18/17 Citalopram Hydrobromide [Celexa] 10 mg PO DAILY 08/18/17 08/18/17 Furosemide [Lasix] 20 mg PO DAILY 08/18/17 08/18/17 Oscillococcinum 1 cap PO Q6H PRN 08/18/17 08/18/17 Vitamin B Complex 1 each PO 0800 08/18/17 08/18/17 Vitamin E Acetate [Vitamin E] 1.25 mg PO 0800 08/18/17 08/18/17 Warfarin [Coumadin] 1.25 mg PO TUTHSA@1700 08/18/17 08/18/17 Carvedilol [Coreg] 3.125 mg PO BID #60 tablet 08/19/17 Spironolactone [Aldactone] 25 mg PO DAILY #30 tablet 08/19/17 - Allergies Allergies/Adverse Reactions: Allergies Allergy/AdvReac Type Severity Reaction Status Date / Time atenolol Allergy Unknown Verified 07/22/17 05:08 glipizide Allergy Unknown Verified 07/22/17 05:08 lisinopril Allergy Unknown Verified 07/22/17 05:08 nitrofurantoin Allergy Unknown Verified 07/22/17 05:08 [From Macrobid] simvastatin Allergy Unknown Verified 07/22/17 05:08 Review of Systems - Constitutional Constitutional: reports: Fatigue, Weakness, Weight loss - Eyes Eyes: reports: Vision loss - Ears, Nose & Throat Ears, Nose & Throat: reports: Hearing loss, Hearing aids - Cardiovascular Cariovascular: reports: Irregular heart rate, Edema, Lightheadedness, Decr. exercise tolerance, Orthopnea - Respiratory Respiratory: reports: Cough, SOB with exertion - Gastrointestinal Gastrointestinal: reports: Constipation, Poor appetite. denies: Abdominal pain , Abdominal distention, Diarrhea, Change in bowel habits - Genitourinary Genitourinary: reports: Dysuria, Frequency, Urgency, Incontinence, Nocturia. denies: Hematuria - Musculoskeletal Musculoskeletal: reports: Limited range of motion, Joint swelling. denies: Muscle pain, Back pain, Muscle aches - Integumentary Integumentary: reports: Dryness. denies: Rash, Pruritis, Lesions - Neurological Neurological: reports: General weakness, Dizziness, Memory problems, Pre- existing deficit. denies: Focal weakness, Headache - Psychiatric Psychiatric: reports: Depression. denies: Suicidal, Hallucinations - Endocrine Endocrine: denies: Polyuria, Polydypsia - Hematologic/Lymphatic Hematologic/Lymphatic: reports: Recurrent infections. denies: Anemia, Bruising - All Other Systems All Other Systems: reports: Reviewed and negative Exam - Vital Signs Reviewed Vital Signs: Yes Vital Signs: Vital Signs x48h Temp Pulse Resp BP Pulse Ox 08/18/17 18:56 36.4 C L 87 18 132/78 H 98 - Physical Exam General Appearance: positive: Alert, Moderate distress, Anxious, Other ( baseline confusion) Eyes Bilateral: positive: Normal inspection, PERRL ENT: positive: ENT inspection nml, Pharynx nml, Dry mucous membranes Neck: positive: Nml inspection, Thyroid nml, Stiff neck Respiratory: positive: Chest non-tender, Wheezes, Rhonchi Cardiovascular: positive: No gallop, Irregularly irregular, Systolic murmur, Decreased pulse(s) Peripheral Pulses: positive: 1+ (faint) Abdomen: positive: Non-tender, Nml bowel sounds Back: positive: Nml inspection Skin: positive: No rash, Warm, Dry, Pallor Extremities: positive: Non-tender, Pedal edema (chronic BLE edema), Joint swelling Neurologic/Psychiatric: positive: Disoriented to place, Disoriented to time, Weakness, Sensory loss, Slurred/abnml speech, Depressed mood/affect, Other ( baseline confusion, pleasant) Reflexes: Bicep (R): 1+, Bicep (L): 1+ Conclusion/Plan - Problem List (1) Acute congestive heart failure with left ventricular diastolic dysfunction Conclusion/Plan: Patient exhibits signs of heart failure by symptoms upon presentation to ED including; FRAGOSO, orthopnea, increased respiratory rate, increased BLE edema and lungs that are congested on exam. On admission patient's BNP was elevated at 908. Plan: IV lasix in the AM, and an echocardiogram was ordered. (2) Atrial fibrillation Conclusion/Plan: Patient has a known history of this and is on no rate control medications. Patient was tachycardic when presenting to the ED and was not thought to be in RVR. Plan: Continue to monitor. Qualifiers: Atrial fibrillation type: persistent Qualified Code(s): I48.1 - Persistent atrial fibrillation (3) Alzheimer's dementia Conclusion/Plan: According to POA, daughter Aniya, patient's memory has been declining for the past few years. Although, for the past 4-5 months the decline has been worse. She claims that she can still recognize family, but has profound short term memory loss. Plan: Provide continuity of care if possible. Send back home when medically stabilized. - Lab Results Lab results reviewed: Yes Dane Bones: 08/19/17 04:57 08/19/17 04:57 - Diagnostic Imaging Results Diagnostic Imaging Results: positive: Prelim report reviewed, Final report reviewed - EKG Results EKG Interpreted Independently: Yes EKG Comparison: Unchanged from prior EKG Core Measures - Anticipated LOS I expect patient to be DC'd or transferred within 96 hours.: Yes - DVT/VTE - Prophylaxis VTE/DVT Device ordered at admit?: Yes VTE/DVT Prophylaxis med ordered at admit?: Yes - Stroke - Rehab Assessment Rehab services assessment to be ordered?: Yes - AMI - Statin at Admit Aspirin Prescribed on Admit: Yes
[2017-08-19 05:19] LABS: BASOPHILS % (AUTO) 0.6 %; EOSINOPHILS % (AUTO) 1.8 %; HGB - HEMOGLOBIN 11.4 g/dL (12.0-16.0); MEAN CORPUSCULAR HEMOGLOBIN 27.7 pg (27.0-31.0); MEAN CORPUSCULAR HGB CONC 32.1 g/dL (32.0-36.0); MEAN CORPUSCULAR VOLUME 86.2 fL (81.0-99.0); MEAN PLATELET VOLUME 8.4 fL (7.9-10.8); MONOCYTES % (AUTO) 22.4 %; NEUTROPHILS % (AUTO) 55.2 %; PLT - PLATELET COUNT 105 10^3/uL (130-450); RED BLOOD COUNT 4.13 10^6/uL (4.20-5.40); RED CELL DISTRIBUTION WIDTH 17.2 % (12.0-15.0); WHITE BLOOD COUNT 3.7 x10^3/uL (4.8-10.8)
[2017-08-19 05:20] LABS: ALBUMIN 3.2 g/dL (3.2-5.5); ALBUMIN/GLOBULIN RATIO 0.8 (1.0-2.2); BILIRUBIN,TOTAL 1.9 mg/dL (0.2-1.0); CALCIUM 8.5 mg/dL (8.5-10.3); CREATININE 0.6 mg/dL (0.4-1.0); MAGNESIUM 1.3 mg/dL (1.7-2.8); PHOSPHORUS 2.4 mg/dL (2.5-4.6)
[2017-08-19 05:21] LABS: ABNORMAL LYMPHS % (MANUAL) 0 %
[2017-08-19 05:26] LABS: INR 2.4 (0.8-1.2); PT - PROTHROMBIN TIME 25.8 secs (9.9-12.6)
[2017-08-19] MEDS: SODIUM CHLORIDE FLUSH 0.9% 10 ML SYRINGE IVP SCH ×2 (05:47→09:08)
[2017-08-19 06:16] LABS: BAND NEUTROPHILS % (MANUAL) 1 %; LYMPHOCYTES # (MANUAL) 0.5 10^3/uL (1.5-3.5); LYMPHOCYTES % (MANUAL) 13 %; MONOCYTES # (MANUAL) 0.4 10^3/uL (0.0-1.0); NEUTROPHILS # (MANUAL) 2.7 10^3/uL (1.5-6.6); NEUTROPHILS % (MANUAL) 73 %; RBC MORPHOLOGY (MULTIPLE) NORMAL APPEARANCE (NORMAL)
[2017-08-19 06:17] LABS: DIFFERENTIAL COMMENT MANUAL DIFFERENTIAL; PLATELET ESTIMATE, MANUAL DECREASED (<130,000) (NORMAL)
[2017-08-19] MEDS ORDERED: LEVOTHYROXINE 88 MCG TABLET PO SCH (07:00)
[2017-08-19] MEDS ORDERED: POLYETHYLENE GLYCOL 3350 17 GM PACKET PO SCH (09:00)
[2017-08-19] MEDS ORDERED: CITALOPRAM 10 MG TABLET PO SCH (09:00)
[2017-08-19] MEDS ORDERED: FUROSEMIDE 40 MG/4 ML VIAL IVP SCH (09:00)
[2017-08-19] MEDS ORDERED: POTASSIUM CHLORIDE 20 MEQ TABLET PO ONE (11:09)
[2017-08-19] MEDS ORDERED: SPIRONOLACTONE 25 MG TABLET PO SCH (12:00)
[2017-08-19] MEDS ORDERED: MAGNESIUM OXIDE 400 MG TABLET PO SCH (12:00)
[2017-08-19] MEDS ORDERED: WARFARIN 2.5 MG TABLET PO SCH (14:00)
[2017-08-19] MEDS ORDERED: CARVEDILOL 3.125 MG TABLET PO SCH (15:00)
--- NOTE | 2017-08-19 15:23 | Discharge Plan ---
"Discharge Plan for SNF / [facility] - DC Plan and Transition Orders Disposition: 03 SNF DC/Xfer Condition: Good SNF Transition Orders: Admit to: [facility] Discharge Diagnosis: New onset CHF, dyspnea on exertion, atrial fibrillation, dementia. Notify PCP of admission and forward orders to primary provider for signature. Weight on admission and weekly. Call PCP immediately if weight increases by 10 pounds or if patient develops dyspnea, chest pain/tightness or edema. House Bowel Program: Yes If no BM after 2 days, nurse may give M.O.M. 30ml PO PRN and /or ducolax Supp 1 [place] and /or ENE 250mg P.O., and/or senna 1-2 tabs PO. On day 3 nurse may give repeat above order until residents constipation is resolved. Treatments & Other Orders: Take all medications as prescribed, including newly prescribed medications for worsening heart failure. STOP potassium since Spironolactone will contraindicate this. Medications:PLEASE REFER TO THE DISCHARGE MEDICATION LIST. Allergies and Adverse Reactions: Allergies Allergy/AdvReac Type Severity Reaction Status Date / Time atenolol Allergy Unknown Verified 07/22/17 05:08 glipizide Allergy Unknown Verified 07/22/17 05:08 lisinopril Allergy Unknown Verified 07/22/17 05:08 nitrofurantoin Allergy Unknown Verified 07/22/17 05:08 [From Macrobid] simvastatin Allergy Unknown Verified 07/22/17 05:08 - Medications New Prescriptions: Carvedilol [Coreg] 3.125 mg PO BID #60 tablet Spironolactone [Aldactone] 25 mg PO DAILY #30 tablet - Diet Type: Geriatric Texture: Regular May have monthly special meal: Yes - Therapies | Activity Rehabilitation Potential: Maximize functional status Activity: No Restrictions Weight Bearing: Full Weight"
--- NOTE | 2017-08-19 15:52 | DISCHARGE SUMMARY ---
Discharge Summary Admit Date: 08/18/17 Discharge Date: 08/19/17 Discharging Provider: TYRONE Rivas Primary Care Provider: Maxx Petersen Code Status: Do Not Attempt Resuscitation Condition at Discharge: Good Discharge Disposition: SNF DC/Xfer Discharge Facility Name: [facility] - DIAGNOSES Admission Diagnoses: CHF (congestive heart failure) (I50.9) Chronic atrial fibrillation (I48.2) Discharge Diagnoses with Status of Each Condition: Congestive heart failure with left ventricular diastolic dysfunction, NYHA class 3 (I50.30) new on this admission, new medications prescribed. Chronic atrial fibrillation (I48.2) stable. Dementia (F03.90) progressive, but worsening. - HPI History of Present Illness: Roger Lott is an elderly 87-year old white female with a past medical history of hypertension, CAD, atrial fibrillation, diabetes mellitus type 2, and TIAs. She currently resides at [facility] in [place], [place] with her . She presented to the ED today after a 4-5 day of increased dyspnea on exertion. Her daughter and POAAniya was called to obtain a history to complete this H&P. According to her daughter, she has been having a difficult time with even getting from the chair to the bathroom, without having to stop and rest when she is half way there. She has chronic edema in BLE and takes lasix at home, but no mention of a previous CHF diagnosis. - HOSPITAL COURSE Hospital Course: The patient was monitored on telemetry over night which revealed chronic atrial fibrillation in the 70-90's, without ectopy. An echocardiogram shows an EF of only 30%, which explains her symptoms. She did not require oxygen during her stay and vital signs remained normal. She was given IV diuretics, started on Spironolactone and coreg to be continued, and instructed to STOP potassium. Her mental status remained profoundly confused as her POA admitted to as baseline for her. She was transported via mini-bus back to [facility] with new prescriptions. - ALLERGIES Allergies/Adverse Reactions: Allergies Allergy/AdvReac Type Severity Reaction Status Date / Time atenolol Allergy Unknown Verified 07/22/17 05:08 glipizide Allergy Unknown Verified 07/22/17 05:08 lisinopril Allergy Unknown Verified 07/22/17 05:08 nitrofurantoin Allergy Unknown Verified 07/22/17 05:08 [From Macrobid] simvastatin Allergy Unknown Verified 07/22/17 05:08 - MEDICATIONS Home Medications: Ambulatory Orders Medication Instructions Recorded Confirmed Levothyroxine [Synthroid] 88 mcg PO QDAC 09/29/13 08/18/17 Warfarin Sodium [Coumadin] 2.5 mg PO SuMoWeFr@1700 09/29/13 08/18/17 Acetaminophen [Tylenol Extra 500 mg PO Q4H PRN 08/18/17 08/18/17 Strength] Ascorbic Acid 500 mg PO 0800 08/18/17 08/18/17 Bioplasma 4 tab SL DAILY 08/18/17 08/18/17 Citalopram Hydrobromide [Celexa] 10 mg PO DAILY 08/18/17 08/18/17 Furosemide [Lasix] 20 mg PO DAILY 08/18/17 08/18/17 Oscillococcinum 1 cap PO Q6H PRN 08/18/17 08/18/17 Vitamin B Complex 1 each PO 0800 08/18/17 08/18/17 Vitamin E Acetate [Vitamin E] 1.25 mg PO 0800 08/18/17 08/18/17 Warfarin [Coumadin] 1.25 mg PO TUTHSA@1700 08/18/17 08/18/17 Carvedilol [Coreg] 3.125 mg PO BID #60 tablet 08/19/17 Spironolactone [Aldactone] 25 mg PO DAILY #30 tablet 08/19/17 - PHYSICAL EXAM AT DISCHARGE General Appearance: positive: No acute distress, Alert Eyes Bilateral: positive: Normal inspection ENT: positive: ENT inspection nml, Pharynx nml, No signs of dehydration Neck: positive: Nml inspection, Thyroid nml, No JVD Respiratory: positive: Chest non-tender, No respiratory distress, Other ( crackles in low bases.) Cardiovascular: positive: No gallop, Irregularly irregular, Systolic murmur, Decreased pulse(s) Peripheral Pulses: positive: 1+ Abdomen: positive: Non-tender, No organomegaly, Nml bowel sounds Back: positive: Nml inspection Skin: positive: No rash, Warm, Dry, Pallor Extremities: positive: Non-tender, Full ROM, Pedal edema (chronic BLE edema), Joint swelling Neurologic/Psychiatric: positive: Disoriented to place, Disoriented to time, Weakness, Sensory loss, Slurred/abnml speech, Depressed mood/affect, Other ( baseline dementia) Reflexes: Bicep (R): 2+, Bicep (L): 2+ - LABS Result Diagrams: 08/19/17 04:57 08/19/17 04:57 - DIAGNOSTIC IMAGING Diagnostic Imaging Results: Final report reviewed Diagnostic Imaging Results Comments: EXAM: CHEST RADIOGRAPHY EXAM DATE: 08/18/2017 03:57 PM. CLINICAL HISTORY: Dyspnea for few days. COMPARISON: Chest 08/16/2018. TECHNIQUE: 2 views. FINDINGS: Stable marked cardiomegaly. Mild diffuse interstitial hazy opacities in the lungs, could represent mild pulmonary edema versus chronic markings, similar to the prior. Small left pleural effusion appears unchanged. Moderate irregular and nodular opacifications in the right upper lobe appear increased compared to prior, new compared to the chest CT from 08/03/2016. This could represent new right upper lobe lung malignancy versus pneumonia. Recommend a chest CT preferably with IV contrast to further evaluate. IMPRESSION: Stable marked cardiomegaly. Mild diffuse interstitial hazy opacities in the lungs, could represent mild pulmonary edema versus chronic markings, similar to the prior. Small left pleural effusion appears unchanged. Moderate irregular and nodular opacifications in the right upper lobe appear increased compared to prior, new compared to the chest CT from 08/03/2016. This could represent new right upper lobe lung malignancy versus pneumonia. Recommend a chest CT preferably with IV contrast to further evaluate. ECHOCARDIOGRAM: LV function is reduced when compared to a study on 08/06/15. Moderately impaired systolic function with an EF of 35-40%. Mild RV enlargement. Moderate to severe RA enlargement. Moderate to severe mitral regurg. Mildly abnormal right heart pressures. There is a small pericardial effusion. - FOLLOW UP Follow Up: Care to continue at [facility]. I spoke with Aniya regarding chest x-ray results as it could indicate malignancy in RUL. Recommend follow up in the future/PCP. We also talked about Echo results and medication changes. Disposition: DC/Xfer Condition: Good SNF Transition Orders: Admit to: [facility] Discharge Diagnosis: New onset CHF, dyspnea on exertion, atrial fibrillation, dementia. Notify PCP of admission and forward orders to primary provider for signature. Weight on admission and weekly. Call PCP immediately if weight increases by 10 pounds or if patient develops dyspnea, chest pain/tightness or edema. House Bowel Program: Yes If no BM after 2 days, nurse may give M.O.M. 30ml PO PRN and /or ducolax Supp 1 DE and /or ENE 250mg P.O., and/or senna 1-2 tabs PO. On day 3 nurse may give repeat above order until residents constipation is resolved. Treatments & Other Orders: Take all medications as prescribed, including newly prescribed medications for worsening heart failure. STOP potassium since Spironolactone will contraindicate this. Medications:PLEASE REFER TO THE DISCHARGE MEDICATION LIST. - TIME SPENT Time Spent in Discharge (Minutes): 45
[2017-08-19 17:22] VITALS: BP 153/96
[2017-08-20] MEDS ORDERED: WARFARIN 2.5 MG TABLET PO SCH (14:00)
== END 2017-08-19 15:35 | disposition home or self-care (01) ==
LOC: ED 14:19 → MS2 18:03 → INTOOBSV 18:03 → OBS 08-19 08:24 → UNDODISIN 08-19 15:35
PROVIDERS: ADMIT Nurse Practitioner; ATTEND Nurse Practitioner
DX: I11.0 Hypertensive heart disease with heart failure (principal); I50.31 Acute diastolic (congestive) heart failure; I48.2 Chronic atrial fibrillation; R91.8 Other nonspecific abnormal finding of lung field; G30.9 Alzheimer's disease, unspecified; F02.80 Dementia in other diseases classified elsewhere, unspecified severity, without behavioral disturbance, psychotic disturbance, mood disturbance, and anxiety; I25.10 Atherosclerotic heart disease of native coronary artery without angina pectoris; E11.9 Type 2 diabetes mellitus without complications; E03.9 Hypothyroidism, unspecified; Z86.73 Personal history of transient ischemic attack (TIA), and cerebral infarction without residual deficits; Z79.01 Long term (current) use of anticoagulants; Z66 Do not resuscitate
CPT/HCPCS: 36415; 71046; 80053; 81001; 83605; 83690; 83735; 83880; 84100; 84443; 84484; 85025; 85610; 93005; 93306; 96361; 96374; 99284; 99285; A9270; G0378; 81003; 87086

== ENCOUNTER 2017-08-20 16:32 | Outpatient (CLI) | payer MEDICARE, MEDICAID | END 2017-08-20 16:33 | disposition critical access hospital (66) | LOC: EMS 16:32 | PROVIDERS: ATTEND Surgery | DX: M25.552 Pain in left hip (principal) | CPT/HCPCS: A0425; A0429 ==

== ENCOUNTER 2017-08-20 16:49 | Emergency (ER) | payer MEDICARE, MEDICAID ==
[2017-08-20] MEDS ORDERED: SODIUM CHLORIDE 0.9% 1,000 ML IV ONE (17:04)
[2017-08-20] MEDS ORDERED: PROPOFOL 200 MG/20 ML VIAL IVP STA (17:47)
[2017-08-20 18:02] LABS: BASOPHILS % (AUTO) 0.9 %; EOSINOPHILS % (AUTO) 1.9 %; HGB - HEMOGLOBIN 12.1 g/dL (12.0-16.0); LYMPHOCYTES % (AUTO) 20.4 %; MEAN CORPUSCULAR HEMOGLOBIN 28.3 pg (27.0-31.0); MEAN CORPUSCULAR HGB CONC 32.5 g/dL (32.0-36.0); MEAN CORPUSCULAR VOLUME 87.1 fL (81.0-99.0); MEAN PLATELET VOLUME 8.3 fL (7.9-10.8); MONOCYTES % (AUTO) 20.3 %; NEUTROPHILS % (AUTO) 56.5 %; PLT - PLATELET COUNT 126 10^3/uL (130-450); RED BLOOD COUNT 4.26 10^6/uL (4.20-5.40); RED CELL DISTRIBUTION WIDTH 17.9 % (12.0-15.0); WHITE BLOOD COUNT 4.2 x10^3/uL (4.8-10.8)
[2017-08-20 18:08] LABS: ABNORMAL LYMPHS % (MANUAL) 0 %; BAND NEUTROPHILS % (MANUAL) 0 %
--- NOTE | 2017-08-20 18:11 | XRAY Report ---
EXAM: LEFT HIP AND PELVIS RADIOGRAPHY EXAM DATE: 08/20/2017 05:53 PM. HISTORY: Left hip pain after fall. History of dislocation. COMPARISONS: 07/22/2017. TECHNIQUE: 1 view of the pelvis and 1 view of the hip. FINDINGS: Bones: No acute fracture or bony lesion. Joints: Left posterior femoral prosthesis dislocation in relation to the left acetabulum. Degenerativ e changes of the lumbar spine and right hip joint. Soft Tissues: Vascular calcifications. IMPRESSION: 1. Left posterior femoral prosthesis dislocation. [facility] Referring Provider Line: [phone] SITE ID: [id number]
[2017-08-20 18:15] LABS: ALBUMIN 3.3 g/dL (3.2-5.5); ALBUMIN/GLOBULIN RATIO 0.7 (1.0-2.2); CALCIUM 9.4 mg/dL (8.5-10.3); CREATININE 0.8 mg/dL (0.4-1.0); TOTAL PROTEIN 7.8 g/dL (6.7-8.2)
[2017-08-20 18:22] LABS: LYMPHOCYTES % (MANUAL) 21 %; MONOCYTES # (MANUAL) 0.6 10^3/uL (0.0-1.0); NEUTROPHILS # (MANUAL) 2.4 10^3/uL (1.5-6.6); NEUTROPHILS % (MANUAL) 58 %
[2017-08-20 18:26] LABS: BASOPHILS % (MANUAL) 1 %; EOSINOPHILS # (MANUAL) 0.1 10^3/uL (0-0.7); PLATELET ESTIMATE, MANUAL DECREASED (<130,000) (NORMAL); PLATELET MORPHOLOGY 1+ LARGE PLATELETS (NORMAL); RBC MORPHOLOGY (MULTIPLE) 1+ ANISOCYTOSIS (NORMAL)
--- NOTE | 2017-08-20 18:46 | ED Physician Documentation ---
History of Present Illness - Stated complaint Stated Complaint: Hip dislocation - Chief complaint Chief Complaint: Ext Problem - History obtained from History obtained from: Patient, EMS - History of Present Illness Timing: Today Pain level max: 4 Pain level now: 4 Improved by: nothing Worsened by: bending over - Additonal information Additional information: Patient is an 87-year-old female who has a history of dementia as well as a left hip prosthesis. Bent over today and felt her left hip dislocate. Brought into the emergency department for evaluation. Review of Systems Unable to obtain: Dementia Constitutional: denies: Fever, Chills Nose: denies: Rhinorrhea / runny nose, Congestion Respiratory: denies: Cough GI: denies: Abdominal Pain, Nausea, Vomiting, Diarrhea Skin: denies: Rash Musculoskeletal: denies: Neck pain, Back pain Neurologic: denies: Headache PD PAST MEDICAL HISTORY - Past Medical History Past Medical History: Yes Cardiovascular: Hypertension, Coronary artery disease, Atrial fibrillation Respiratory: None Neuro: TIA Endocrine/Autoimmune: Type 2 diabetes, HyPOthyroidism GI: None : None HEENT: Chronic vision loss, Chronic hearing loss Psych: None Musculoskeletal: None Derm: None - Past Surgical History Past Surgical History: Yes 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 HEENT: Cataracts, Tonsil/Adenoidectomy - Present Medications Home Medications: Ambulatory Orders Medication Instructions Recorded Confirmed Levothyroxine [Synthroid] 88 mcg PO QDAC 09/29/13 08/18/17 Warfarin Sodium [Coumadin] 2.5 mg PO SuMoWeFr@1700 09/29/13 08/18/17 Acetaminophen [Tylenol Extra 500 mg PO Q4H PRN 08/18/17 08/18/17 Strength] Ascorbic Acid 500 mg PO 0800 08/18/17 08/18/17 Bioplasma 4 tab SL DAILY 08/18/17 08/18/17 Citalopram Hydrobromide [Celexa] 10 mg PO DAILY 08/18/17 08/18/17 Furosemide [Lasix] 20 mg PO DAILY 08/18/17 08/18/17 Oscillococcinum 1 cap PO Q6H PRN 08/18/17 08/18/17 Vitamin B Complex 1 each PO 0800 08/18/17 08/18/17 Vitamin E Acetate [Vitamin E] 1.25 mg PO 0800 08/18/17 08/18/17 Warfarin [Coumadin] 1.25 mg PO TUTMARINAA@1700 08/18/17 08/18/17 Carvedilol [Coreg] 3.125 mg PO BID #60 tablet 08/19/17 Spironolactone [Aldactone] 25 mg PO DAILY #30 tablet 08/19/17 - Allergies Allergies/Adverse Reactions: Allergies Allergy/AdvReac Type Severity Reaction Status Date / Time atenolol Allergy Unknown Verified 07/22/17 05:08 glipizide Allergy Unknown Verified 07/22/17 05:08 lisinopril Allergy Unknown Verified 07/22/17 05:08 nitrofurantoin Allergy Unknown Verified 07/22/17 05:08 [From Macrobid] simvastatin Allergy Unknown Verified 07/22/17 05:08 - Social History Does the pt smoke?: No Smoking Status: Never smoker Does the pt drink ETOH?: No Does the pt have substance abuse?: No - Immunizations Immunizations are current?: Yes - POLST Patient has POLST: Yes POLST Status: DNR PD ED PE NORMAL - Vitals Vital signs reviewed: Yes - General General: No acute distress, Well developed/nourished, Other (alert, oriented to person and place) - HEENT HEENT: Atraumatic, PERRL, EOMI, Moist mucous membranes, Pharynx benign - Neck Neck: Supple, no meningeal sign, No bony TTP - Cardiac Cardiac: RRR - Respiratory Respiratory: No respiratory distress, Clear bilaterally - Abdomen Abdomen: Soft, Non tender, Non distended - Back Back: No spinal TTP - Derm Derm: Warm and dry - Extremities Extremities: Other (L leg is internally rotated, pain with movement. NVI) - Neuro Neuro: No motor deficit, No sensory deficit - Psych Psych: Normal affect Results - Vitals Vitals: Vital Signs - 24 hr 08/20/17 08/20/17 08/20/17 16:50 18:00 18:05 Temperature 35.6 C L Heart Rate 74 76 80 Respiratory 18 19 27 H Rate Blood Pressure 143/94 H 150/91 H O2 Saturation 98 95 08/20/17 08/20/17 08/20/17 18:20 18:22 20:02 Temperature 36.1 C L Heart Rate 73 72 68 Respiratory 14 16 16 Rate Blood Pressure 128/79 150/82 H O2 Saturation 100 94 Oxygen O2 Source Room air - Labs Labs: Laboratory Tests 08/20/17 08/20/17 17:57 17:57 WBC 4.2 L RBC 4.26 Hgb 12.1 Hct 37.1 MCV 87.1 MCH 28.3 MCHC 32.5 RDW 17.9 H Plt Count 126 L MPV 8.3 Neut # Not Reportable Lymph # Not Reportable [place] # Not Reportable Eos # Not Reportable Baso # Not Reportable Absolute Nucleated RBC Not Reportable Total Counted 100 Band Neuts % (Manual) 0 Reactive Lymphs % (Man) 3 Abnorm Lymph % (Manual) 0 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 % Not Reportable Neutrophils # (Manual) 2.4 Lymphocytes # (Manual) 1.0 L Monocytes # (Manual) 0.6 Eosinophils # (Manual) 0.1 Basophils # (Manual) 0.0 Manual Slide Review Indicated Platelet Estimate DECREASED (<130,000) Platelet Morphology 1+ LARGE PLATELETS RBC Morph Micro Appear 1+ ANISOCYTOSIS Sodium 139 Potassium 3.9 Chloride 98 L Carbon Dioxide 27 Anion Gap 14.0 H BUN 16 Creatinine 0.8 Estimated GFR (MDRD) 68 L Glucose 107 H Calcium 9.4 Total Bilirubin 2.0 H AST 30 ALT 18 Alkaline Phosphatase 51 Total Protein 7.8 Albumin 3.3 Globulin 4.5 H Albumin/Globulin Ratio 0.7 L Lipase 23 - Rads (name of study) L hip xray Radiology: Prelim report reviewed, EMP read contemporaneously, See rad report ( Left posterior femoral prosthesis dislocation) post reduction L hip Radiology: Prelim report reviewed, EMP read contemporaneously, See rad report ( Successfully reduced prosthesis) Procedures - Reduction Body part reduced: Left, Hip, prosthetic Fracture or dislocation: Fracture Anesthesia: Propofol Hip reduction technique: Fulcrum Reduction aftercare: NV intact, Xray confirms reduction, Alignment improved - Procedural sedation Sedation prep: Informed consent (8 hours), Time out completed, Last meal (8 hours), PE performed, AHA 3 - severe disease, IV O2 monitor, ET CO2 monitor, RT present Sedation medications: propofol (40mg) Patient status during sedation: Responds to tactile, Vitals remained stable, Maintained airway, Recovered uneventfully. No: Complications Sedation recovery: Recovered uneventfully, Back to baseline PD MEDICAL DECISION MAKING - ED course Complexity details: reviewed old records, reviewed results, re-evaluated patient , considered differential, d/w patient ED course: Patient is an 87-year-old female with a prosthetic left hip dislocation. This was reduced in the emergency department under 40 mg of propofol. Tolerated well. X-ray confirms reduction. Placed in a knee immobilizer and is utilizing a walker. We will have her follow-up with orthopedics for further care. Also discussed the case with her daughter over the phone. Patient and family counseled regarding signs and symptoms for which I believe and urgent re- evaluation would be necessary. Patient with good understanding of and agreement to plan and is comfortable going home at this time This document was made in part using voice recognition software. While efforts are made to proofread this document, sound alike and grammatical errors may occur. Departure - Departure Disposition: 01 Home, Self Care Clinical Impression: Hip dislocation, left Qualifiers: Encounter type: initial encounter Qualified Code(s): S73.005A - Unspecified dislocation of left hip, initial encounter Condition: Good Instructions: ED Hip Replace Dislocation Reduc Follow-Up: [facility] [Provider Group] - Within 1 week your,doctor in 1 week [Other] Comments: Roger needs to wear the knee immobilizer for the next 3 days. She also should use a walker to move around at home. Return if she worsens. It is very important that she follow-up with orthopedics for repeat evaluation. Discharge Date/Time: 08/20/17 20:03
--- NOTE | 2017-08-20 19:16 | XRAY Preliminary Report ---
Exam: XR HIP W/PELVIS 2-3V LT IMPRESSION: Interval reduction of dislocated left hip prosthesis. No new abnormality. [facility] SITE ID: [id number]
--- NOTE | 2017-08-20 19:16 | XRAY Report ---
EXAM: LEFT HIP AND PELVIS RADIOGRAPHY EXAM DATE: 08/20/2017 06:56 PM. HISTORY: Left hip dislocation. Post reduction. COMPARISONS: 08/20/2017 5:11 PM. TECHNIQUE: 1 view of the pelvis and 2 views of the left. FINDINGS: Bones: Post left total hip arthroplasty. The prosthesis is intact. No acute fracture. Joints: Normal alignment at the hips, sacroiliac joints, and pubic symphysis. Soft Tissues: Multiple tiny metallic radiopacities project over the right pelvis, as before. IMPRESSION: Interval reduction of dislocated left hip prosthesis. No new abnormality. [facility] Referring Provider Line: [phone] SITE ID: [id number]
[2017-08-20 20:03] VITALS: BP 150/82
== END 2017-08-20 20:03 | disposition home or self-care (01) ==
LOC: EDUNIT# → ED 16:49
DX: T84.021A Dislocation of internal left hip prosthesis, initial encounter (principal); I48.91 Unspecified atrial fibrillation; I10 Essential (primary) hypertension; I25.10 Atherosclerotic heart disease of native coronary artery without angina pectoris; E03.9 Hypothyroidism, unspecified; Z79.01 Long term (current) use of anticoagulants; Z86.73 Personal history of transient ischemic attack (TIA), and cerebral infarction without residual deficits
CPT/HCPCS: 27265; 29530; 36415; 80053; 83690; 85025; 94770; 99152; 99284; 99285

== ENCOUNTER 2017-08-22 08:38 | Outpatient (CLI) | payer MEDICARE, MEDICAID | END 2017-08-22 08:39 | disposition critical access hospital (66) | LOC: EMS 08:38 | PROVIDERS: ATTEND Surgery | DX: M25.552 Pain in left hip (principal) | CPT/HCPCS: A0425; A0427 ==

== ENCOUNTER 2017-08-22 08:54 | Emergency (ER) | payer MEDICARE, MEDICAID ==
[2017-08-22 09:03] VITALS: BP 155/88
--- NOTE | 2017-08-22 09:58 | XRAY Report ---
EXAM: LEFT HIP AND PELVIS RADIOGRAPHY EXAM DATE: 08/22/2017 09:24 AM. HISTORY: Left dislocation. COMPARISONS: None. TECHNIQUE: 1 view of the pelvis and 1 view of the hip. FINDINGS: Prior left total hip arthroplasty with superolateral dislocation. No fracture evident. Multiple tiny metallic densities project over right lower quadrant as on prior exam. IMPRESSION: 1. Prior left total hip arthroplasty with superolateral dislocation. [facility] Referring Provider Line: [phone] SITE ID: [id number]
[2017-08-22] MEDS ORDERED: PROPOFOL 200 MG/20 ML VIAL IVP STA (12:29)
--- NOTE | 2017-08-22 12:32 | ED Physician Documentation ---
PD HPI LOWER EXT INJURY - Stated complaint Stated Complaint: POSS HIP DISLOCATION - Chief complaint Chief Complaint: Trauma Ext - History obtained from History obtained from: Patient, EMS - History of Present Illness PD HPI LOW EXT INJURY LOCATION: Left, Hip Type of injury: Twist Where injury occurred: Home Timing - onset: Today Timing - duration: Hours Timing - details: Abrupt onset, Still present Improved by: Rest, Immobilization Worsened by: Moving, Palpating Associated symptoms: No: Weakness, Numbness Contributing factors: Anticoagulated Similar symptoms before: Diagnosis (hip dislocation of prosthesis) Recently seen: Emergency Dept - Additional information Additional information: 87-year-old female with advanced dementia has rolled over in bed this morning and dislocated her left hip. She did this yesterday was in the emergency department yesterday and had the hip reduced. She was placed into a knee immobilizer. She has had the hip dislocate about 1 month ago as well. 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 HEENT: Cataracts, Tonsil/Adenoidectomy - Present Medications Home Medications: Ambulatory Orders Medication Instructions Recorded Confirmed Levothyroxine [Synthroid] 88 mcg PO QDAC 09/29/13 08/18/17 Warfarin Sodium [Coumadin] 2.5 mg PO SuMoWeFr@1700 09/29/13 08/18/17 Acetaminophen [Tylenol Extra 500 mg PO Q4H PRN 08/18/17 08/18/17 Strength] Ascorbic Acid 500 mg PO 0800 08/18/17 08/18/17 Bioplasma 4 tab SL DAILY 08/18/17 08/18/17 Citalopram Hydrobromide [Celexa] 10 mg PO DAILY 08/18/17 08/18/17 Furosemide [Lasix] 20 mg PO DAILY 08/18/17 08/18/17 Oscillococcinum 1 cap PO Q6H PRN 08/18/17 08/18/17 Vitamin B Complex 1 each PO 0800 08/18/17 08/18/17 Vitamin E Acetate [Vitamin E] 1.25 mg PO 0800 08/18/17 08/18/17 Warfarin [Coumadin] 1.25 mg PO TUTHSA@1700 08/18/17 08/18/17 Carvedilol [Coreg] 3.125 mg PO BID #60 tablet 08/19/17 Spironolactone [Aldactone] 25 mg PO DAILY #30 tablet 08/19/17 - Allergies Allergies/Adverse Reactions: Allergies Allergy/AdvReac Type Severity Reaction Status Date / Time atenolol Allergy Unknown Verified 07/22/17 05:08 glipizide Allergy Unknown Verified 07/22/17 05:08 lisinopril Allergy Unknown Verified 07/22/17 05:08 nitrofurantoin Allergy Unknown Verified 07/22/17 05:08 [From Macrobid] simvastatin Allergy Unknown Verified 07/22/17 05:08 - Social History Does the pt smoke?: No Smoking Status: Never smoker Does the pt drink ETOH?: No Does the pt have substance abuse?: No - Immunizations Immunizations are current?: Yes - POLST Patient has POLST: Yes POLST Status: DNR PD ED PE NORMAL - Vitals Vital signs reviewed: Yes (Hypertensive mild) - General General: Well developed/nourished, Other (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 and she prefers to lay with her eyes closed she does answer questions and appears to answer them appropriately.) - HEENT HEENT: Atraumatic, PERRL - Neck Neck: Supple, no meningeal sign - Respiratory Respiratory: No respiratory distress - Back Back: No CVA TTP, No spinal TTP - Derm Derm: Normal color, Warm and dry, No rash - Extremities Extremities: No edema, Other (There is deformity of the left hip area consistent with a Left hip dislocation) - Neuro Neuro: No motor deficit, No sensory deficit, Normal speech Eye Opening: Spontaneous Motor: Obeys Commands Verbal: Confused GCS Score: 14 - Psych Psych: Normal mood Results - Vitals Vitals: Vital Signs - 24 hr 08/22/17 08/22/17 08:58 12:55 Temperature 36.5 C Heart Rate 67 81 Respiratory 16 13 Rate Blood Pressure 155/88 H O2 Saturation 97 Oxygen O2 Source Room air - Labs Labs: Laboratory Tests 08/22/17 08/22/17 08/22/17 12:55 12:55 12:55 WBC 5.2 RBC 4.43 Hgb 12.8 Hct 38.2 MCV 86.3 MCH 29.0 MCHC 33.6 RDW 17.7 H Plt Count 114 L MPV 8.6 Neut # 4.0 Lymph # 0.6 L [place] # 0.5 Eos # 0.1 Baso # 0.0 Absolute Nucleated RBC 0.01 Nucleated RBC % 0.1 PT 28.0 H INR 2.6 H Sodium 136 Potassium 3.7 Chloride 99 L Carbon Dioxide 26 Anion Gap 11.0 BUN 20 Creatinine 0.8 Estimated GFR (MDRD) 68 L Glucose 108 H Calcium 9.3 Total Bilirubin 2.3 H AST 36 ALT 17 Alkaline Phosphatase 58 Total Protein 8.1 Albumin 3.6 Globulin 4.5 H Albumin/Globulin Ratio 0.8 L Lipase 24 - Rads (name of study) Left hip Radiology: Prelim report reviewed (Impression: 1. Prior left total hip arthroplasty with superolateral dislocation.), EMP read indepedently, See rad report Post reduction Radiology: Prelim report reviewed (Impression: 1. Significantly improved alignment of the left total hip arthroplasty with femoral head component now within the acetabular cup. 2. Slight superior displacement of the femoral head component with the acetabular cup can be seen in the setting of linear wear.), EMP read indepedently, See rad report Procedures - Reduction Body part reduced: Left, Hip, prosthetic Fracture or dislocation: Dislocation Anesthesia: Conscious sedation, Propofol Hip reduction technique: Allis - flex/pull/rotate Reduction aftercare: NV intact, Xray confirms reduction, Splint applied, Patient tolerated well - Procedural sedation Sedation prep: Informed consent, Time out completed, PE performed, AHA 3 - severe disease Sedation medications: propofol Patient status during sedation: Responds to tactile, Maintained airway, Recovered uneventfully Sedation recovery: Recovered uneventfully, Back to baseline PD MEDICAL DECISION MAKING - ED course Complexity details: reviewed old records, reviewed results, re-evaluated patient , considered differential, d/w patient ED course: 87-year-old female with advanced dementia has dislocated her left hip again today and here in the emergency department she has her hip reduced with 40 mg of propofol and she is placed into an abductor pillow. Dr. Efraín Bullock is consulted in the case and recommends use of the abductor pillow and recommends that she wear this while in bed and while sitting in a chair for the next 2-3 months before deciding to commit to a procedure to redo this prosthesis. Departure - Departure Disposition: 01 Home, Self Care Clinical Impression: Hip dislocation, left Qualifiers: Encounter type: initial encounter Qualified Code(s): S73.005A - Unspecified dislocation of left hip, initial encounter Condition: Stable Instructions: ED Hip Replace Dislocation Reduc Follow-Up: Maxx Petersen DO [Provider Admit Priv/Credential] - Comments: You have had your hip dislocate recurrently this past month and you will need to stay in this abductor pillow for 1-2 months. If this hip continues to come out following that he will need a procedure to revise the hip joint. This is a procedure that should be done by a surgeon that specializes in re-doing hip joints.
[2017-08-22 13:08] LABS: BASOPHILS % (AUTO) 0.4 %; EOSINOPHILS # (AUTO) 0.1 10^3/uL (0.0-0.7); EOSINOPHILS % (AUTO) 1.6 %; HGB - HEMOGLOBIN 12.8 g/dL (12.0-16.0); LYMPHOCYTES # (AUTO) 0.6 10^3/uL (1.5-3.5); LYMPHOCYTES % (AUTO) 11.6 %; MEAN CORPUSCULAR HGB CONC 33.6 g/dL (32.0-36.0); MEAN CORPUSCULAR VOLUME 86.3 fL (81.0-99.0); MEAN PLATELET VOLUME 8.6 fL (7.9-10.8); MONOCYTES # (AUTO) 0.5 10^3/uL (0.0-1.0); MONOCYTES % (AUTO) 9.6 %; NEUTROPHILS % (AUTO) 76.8 %; PLT - PLATELET COUNT 114 10^3/uL (130-450); RED BLOOD COUNT 4.43 10^6/uL (4.20-5.40); RED CELL DISTRIBUTION WIDTH 17.7 % (12.0-15.0); WHITE BLOOD COUNT 5.2 x10^3/uL (4.8-10.8)
[2017-08-22 13:09] LABS: INR 2.6 (0.8-1.2)
[2017-08-22 13:23] LABS: ALBUMIN 3.6 g/dL (3.2-5.5); ALBUMIN/GLOBULIN RATIO 0.8 (1.0-2.2); BILIRUBIN,TOTAL 2.3 mg/dL (0.2-1.0); CALCIUM 9.3 mg/dL (8.5-10.3); CREATININE 0.8 mg/dL (0.4-1.0); TOTAL PROTEIN 8.1 g/dL (6.7-8.2)
--- NOTE | 2017-08-22 13:55 | XRAY Preliminary Report ---
Exam: XR HIP W/PELVIS 1V LT IMPRESSION: 1. 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 2. Slight superior displacement of the femoral head component within the acetabular cup can be seen i n the setting of liner wear. [facility] SITE ID: [id number]
--- NOTE | 2017-08-22 13:56 | XRAY Report ---
EXAM: LEFT HIP AND PELVIS RADIOGRAPHY EXAM DATE: 08/22/2017 01:22 PM. HISTORY: Post reduction. COMPARISONS: Left hip radiograph dated 08/22/2017. TECHNIQUE: 2 views left hip. 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 The femoral head is slightly superiorly positioned within the cup. No e vidence of loosening. Joints: The bilateral hip, pubis symphysis, and sacroiliac joints are preserved. Soft Tissues: Normal. No soft tissue swelling. IMPRESSION: 1. 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 2. Slight superior displacement of the femoral head component within the acetabular cup can be seen i n the setting of liner wear. [facility] Referring Provider Line: [phone] SITE ID: [id number]
== END 2017-08-22 17:26 | disposition home or self-care (01) ==
LOC: EDUNIT# → ED 08:54
DX: T84.021A Dislocation of internal left hip prosthesis, initial encounter (principal); X50.9XXA Other and unspecified overexertion or strenuous movements or postures, initial encounter; Y92.009 Unspecified place in unspecified non-institutional (private) residence as the place of occurrence of the external cause; I10 Essential (primary) hypertension; I25.10 Atherosclerotic heart disease of native coronary artery without angina pectoris; F03.90 Unspecified dementia, unspecified severity, without behavioral disturbance, psychotic disturbance, mood disturbance, and anxiety; E11.9 Type 2 diabetes mellitus without complications; I48.91 Unspecified atrial fibrillation; Z79.01 Long term (current) use of anticoagulants; Z86.73 Personal history of transient ischemic attack (TIA), and cerebral infarction without residual deficits
CPT/HCPCS: 27265; 36415; 80053; 83690; 85025; 85610; 94770; 99152; 99283; 99284

== ENCOUNTER 2017-09-06 08:00 | Outpatient (CLI) | payer MEDICARE, MEDICAID ==
[2017-09-06 19:14] LABS: BASOPHILS % (AUTO) 0.7 %; EOSINOPHILS # (AUTO) 0.1 10^3/uL (0.0-0.7); EOSINOPHILS % (AUTO) 1.6 %; HGB - HEMOGLOBIN 11.8 g/dL (12.0-16.0); LYMPHOCYTES # (AUTO) 0.8 10^3/uL (1.5-3.5); LYMPHOCYTES % (AUTO) 12.9 %; MEAN CORPUSCULAR HGB CONC 32.5 g/dL (32.0-36.0); MEAN CORPUSCULAR VOLUME 86.2 fL (81.0-99.0); MEAN PLATELET VOLUME 8.8 fL (7.9-10.8); MONOCYTES % (AUTO) 16.9 %; NEUTROPHILS # (AUTO) 4.2 10^3/uL (1.5-6.6); NEUTROPHILS % (AUTO) 67.9 %; PLT - PLATELET COUNT 223 10^3/uL (130-450); RED BLOOD COUNT 4.21 10^6/uL (4.20-5.40); RED CELL DISTRIBUTION WIDTH 17.9 % (12.0-15.0); WHITE BLOOD COUNT 6.2 x10^3/uL (4.8-10.8)
[2017-09-06 19:33] LABS: CALCIUM 8.9 mg/dL (8.5-10.3); CREATININE 0.7 mg/dL (0.4-1.0)
== END 2017-09-06 08:01 | disposition home or self-care (01) ==
LOC: LAB.WCP 08:00
PROVIDERS: ATTEND Family Medicine
DX: I50.9 Heart failure, unspecified (principal)
CPT/HCPCS: 36415; 80048; 85025